=== PATIENT | female | born 1965 | race Hispanic/Latino ===

== ENCOUNTER 2021-11-21 13:20 | Outpatient (CLI) | payer BC | END 2021-11-21 13:21 | disposition home or self-care (01) | LOC: BICRAD 13:20 | PROVIDERS: ATTEND Family Medicine | DX: R05.9 Cough, unspecified (principal) | CPT/HCPCS: 71046 ==

== ENCOUNTER → 2024-08-10 | Day surgery (SDC) | payer OTHER ==
[~2024-08-10] MED LIST: Gadobenate Dimeglumine 2 ML, Sodium Chloride 0.9% 250 ML 10 ML, Iopamidol 8 ML, Lidocai... FS ONE; Gadobenate Dimeglumine 2 ML, Sodium Chloride 0.9% 250 ML 10 ML, Iopamidol 8 ML, Lidocai... FS SCH; Sodium Bicarbonate 2.5 MEQ/5 ML SDV ONE
== END ==
LOC: RAD 09:59
PROVIDERS: ATTEND Orthopaedic Surgery
PROC: BP2 Imaging, Non-Axial Upper Bones, Computerized Tomography (CT Scan) (ICD-10-PCS; principal; 2024-08-10)
DX: S52.572A Other intraarticular fracture of lower end of left radius, initial encounter for closed fracture (principal); M65.332 Trigger finger, left middle finger; X58.XXXA Exposure to other specified factors, initial encounter; Z88.0 Allergy status to penicillin
CPT/HCPCS: 25246; 77002; A9577; J0171; J7050; Q9967

== ENCOUNTER 2025-08-22 15:15 | Outpatient (CLI) | payer BC | END 2025-08-22 15:16 | disposition home or self-care (01) | LOC: BICMAMMO 15:15 | PROVIDERS: ATTEND Family Medicine | DX: Z12.31 Encounter for screening mammogram for malignant neoplasm of breast (principal); N64.89 Other specified disorders of breast | CPT/HCPCS: 77063; 77067 ==